=== PATIENT | male | born 1950 | race Caucasian/White ===

== ENCOUNTER 2017-07-25 19:23 | Inpatient (IN) | payer MEDICAID ==
[~2017-07-25] VITALS: Ht 177.8 cm; Wt 84.9 kg
[2017-07-25 20:34] LABS: BASOPHIL % 0.6 % (0-2); RED CELL DISTRIBUTION WIDTH 12.5 % (11.5-14.5)
[2017-07-25 20:35] LABS: PLATELET COUNT 432 x10^3mcL (130-400)
[2017-07-25 20:50] LABS: CALCIUM 8.3 mg/dL (8.5-10.1); CARBON DIOXIDE 30.2 mmol/L (21-32); CHLORIDE SERUM 96 mmol/L (98-107); CREATININE SERUM 1.1 mg/dL (0.7-1.3); GFR1 > 60 mL/min; GLUCOSE SERUM 392 mg/dL (74-106); POTASSIUM SERUM 3.7 mmol/L (3.5-5.1); SODIUM SERUM 129 mmol/L (136-145)
[2017-07-25 21:01] LABS: ALKALINE PHOSPHATASE 202 U/L (46-116); ALT/SGPT 31 U/L (16-63); AMYLASE 41 U/L (25-115); AST/SGOT 21 U/L (15-37); BILIRUBIN TOTAL 0.42 mg/dL (0.20-1.00); LIPASE 109 IU/L (73-393); TOTAL PROTEIN, SERUM 6.9 g/dL (6.4-8.2)
[2017-07-25 21:03] LABS: microscopic required? NO
[2017-07-25 21:17] LABS: ALBUMIN 2.2 g/dL (3.4-5.0); CHOLESTEROL 101 mg/dL (<200); HDL CHOLESTEROL 29 mg/dL (40-60)
[2017-07-25 21:23] LABS: UA SPECIFIC GRAVITY <=1.005 (1.005-1.035); urine erythrocyte NEGATIVE (NEGATIVE)
[2017-07-25 21:35] LABS: AMPHETAMINE QUAL UR NONE DETECTED (NEG <=1000)
[2017-07-25] MEDS ORDERED: CARVEDILOL3.125 M1 PO (22:16)
[2017-07-25] MEDS ORDERED: BETIMOL5 M1 (22:17)
[2017-07-25] MEDS ORDERED: GEMFIBROZIL600 MG PO (22:17)
[2017-07-25 23:20] LABS: MAGNESIUM 1.7 mg/dL (1.8-2.4); PHOSPHOROUS 3.2 mg/dL (2.5-4.9)
[2017-07-25 23:21] LABS: CHOLESTEROL/HDL RATIO 3.4
[2017-07-25 23:23] VITALS: BP 140/93
[2017-07-25 23:26] VITALS: Ht 177.8 cm; Wt 84.9 kg
[2017-07-25 23:28] LABS: FREE T4 1.37 ng/dL (0.76-1.46); FREE THYROXINE INDEX 3.3 ug/dL (1.4-4.5); T4(THYROXINE) 9.9 ug/dL (4.7-13.3)
[2017-07-26 00:07] LABS: T3 TOTAL 1.31 ng/mL
[2017-07-26 06:01] VITALS: BP 145/86
[2017-07-26 06:37] LABS: BASOPHIL % 0.9 % (0-2); RED CELL DISTRIBUTION WIDTH 12.7 % (11.5-14.5)
[2017-07-26 06:57] LABS: PLATELET COUNT 438 x10^3mcL (130-400)
[2017-07-26 06:58] LABS: CARBON DIOXIDE 30.4 mmol/L (21-32); CHLORIDE SERUM 102 mmol/L (98-107); CREATININE SERUM 0.7 mg/dL (0.7-1.3); GFR1 > 60 mL/min; GLUCOSE SERUM 69 mg/dL (74-106); POTASSIUM SERUM 3.1 mmol/L (3.5-5.1); SODIUM SERUM 138 mmol/L (136-145)
[2017-07-26 09:59] VITALS: BP 132/87
[2017-07-26 21:54] VITALS: BP 128/88
[2017-07-27 06:04] VITALS: BP 136/84
[2017-07-27 06:14] LABS: BASOPHIL % 0.9 % (0-2); RED CELL DISTRIBUTION WIDTH 13.2 % (11.5-14.5)
[2017-07-27 06:32] LABS: CALCIUM 8.5 mg/dL (8.5-10.1); CARBON DIOXIDE 33.7 mmol/L (21-32); CHLORIDE SERUM 101 mmol/L (98-107); CREATININE SERUM 0.9 mg/dL (0.7-1.3); GFR1 > 60 mL/min; GLUCOSE SERUM 228 mg/dL (74-106); MAGNESIUM 1.7 mg/dL (1.8-2.4); PHOSPHOROUS 4.2 mg/dL (2.5-4.9); POTASSIUM SERUM 4.3 mmol/L (3.5-5.1); SODIUM SERUM 136 mmol/L (136-145)
[2017-07-27 06:47] LABS: PLATELET COUNT 438 x10^3mcL (130-400)
[2017-07-27 09:19] VITALS: BP 122/71
[2017-07-27 17:06] VITALS: BP 118/86
[2017-07-27 21:47] VITALS: BP 124/72
[2017-07-28 05:58] VITALS: BP 128/78
[2017-07-28 07:23] LABS: PLATELET COUNT 377 x10^3mcL (130-400)
[2017-07-28 07:27] LABS: CALCIUM 8.6 mg/dL (8.5-10.1); CHLORIDE SERUM 97 mmol/L (98-107); CREATININE SERUM 0.9 mg/dL (0.7-1.3); GFR1 > 60 mL/min; GLUCOSE SERUM 358 mg/dL (74-106); MAGNESIUM 1.6 mg/dL (1.8-2.4); PHOSPHOROUS 3.8 mg/dL (2.5-4.9); POTASSIUM SERUM 4.2 mmol/L (3.5-5.1); SODIUM SERUM 131 mmol/L (136-145)
[2017-07-28 08:55] VITALS: BP 124/76
[2017-07-28 10:42] VITALS: BP 124/76
[2017-07-28] MEDS ORDERED: GLU10 PO ×2 (10:44→10:45)
[2017-07-28] MEDS ORDERED: CLINDAMYCIN HC300 MG PO ×2 (10:44→10:45)
[2017-07-28] MEDS ORDERED: LAC PO ×2 (10:44→10:45)
[2017-07-28] MEDS ORDERED: METFORMIN HCL1000 MG PO ×2 (10:44→10:45)
[2017-07-28] MEDS ORDERED: LEVAQUIN750 MG PO ×2 (10:44)
== END 2017-07-28 14:08 | disposition home or self-care (01) | DRG 137 ==
LOC: ED 19:23 → DU 22:21 → MU 07-26 10:28
PROVIDERS: Emergency Medicine; ADMIT Family Medicine
DX: J69.0 Pneumonitis due to inhalation of food and vomit (principal); N17.0 Acute kidney failure with tubular necrosis; E43 Unspecified severe protein-calorie malnutrition; I50.43 Acute on chronic combined systolic (congestive) and diastolic (congestive) heart failure; L89.152 Pressure ulcer of sacral region, stage 2; E11.51 Type 2 diabetes mellitus with diabetic peripheral angiopathy without gangrene; E11.65 Type 2 diabetes mellitus with hyperglycemia; E87.1 Hypo-osmolality and hyponatremia; E83.42 Hypomagnesemia; I16.0 Hypertensive urgency; J32.9 Chronic sinusitis, unspecified; E87.6 Hypokalemia; D64.9 Anemia, unspecified; Z68.26 Body mass index [BMI] 26.0-26.9, adult; Z59.0 Homelessness; Z22.322 Carrier or suspected carrier of Methicillin resistant Staphylococcus aureus; Z91.14 Patient's other noncompliance with medication regimen
CPT/HCPCS: 82962; 83880; 84439; 94150; 97110-GP; 97116-GP; 97530-GP; J1815; J1940; J1956; J3490; J7030; J7620; Q0092